=== PATIENT | female | born 1950 | race Native Hawaiian/Other Pacific Islander ===

== ENCOUNTER 2017-12-09 11:22 | Outpatient (CLI) | payer OTHER ==
[2017-12-09 11:43] LABS: PLATELET COUNT 182 K/uL (152-353)
[2017-12-09 12:02] LABS: POTASSIUM 3.6 mmol/L (3.6-5.2)
== END 2017-12-09 19:39 | disposition home or self-care (01) ==
LOC: LABW 11:22
PROVIDERS: Physician Assistant Medical
DX: J44.9 Chronic obstructive pulmonary disease, unspecified (principal); I10 Essential (primary) hypertension; G89.29 Other chronic pain; M10.9 Gout, unspecified; I50.9 Heart failure, unspecified; Z79.899 Other long term (current) drug therapy
CPT/HCPCS: 36415; 80053; 80061; 83036; 84436; 84443; 84479; 85027